=== PATIENT | male | born 1965 ===

== ENCOUNTER 2021-07-08 06:54 | Emergency (ER) | payer BC ==
[2021-07-08 08:52] LABS: SARS-COV-2 RT PCR POSITIVE (NEGATIVE)
--- NOTE | 2021-07-08 09:00 | RAD REPORT ---
EXAM DESCRIPTION: RAD - Chest Pa And Lat (2 Views) - 07/08/2021 8:46 am CLINICAL HISTORY: SOB COMPARISON: No comparisons FINDINGS: Lines: None. Lungs: No evidence of edema or pneumonia. Pleural: No significant pleural effusions or pneumothorax. Cardiac: The heart size is within normal limits. Bones: No acute fractures. Other: IMPRESSION: No acute cardiopulmonary disease.
--- NOTE | 2021-07-08 09:12 | EDPHYS ---
Physician Documentation [facility] Name: Sim Sanchez Age: 56 yrs Sex: Male : 1965 Arrival Date: 07/08/2021 Time: 06:56 Bed 5 Private MD: ED Physician Nacho Morrissey HPI: 07/08 07:50 This 56 yrs old Male presents to ER via Ambulatory with complaints of Shortness Of pm1 Breath. 07:50 The patient has shortness of breath that woke him/her from sleep. Onset: The pm1 symptoms/episode began/occurred this morning. The patient's shortness of breath is alleviated by clearing phlegm from his throat. Associated signs and symptoms: Pertinent positives: productive cough, Pertinent negatives: chest pain, fever, hemoptysis, nausea, vomiting. Severity of symptoms: in the emergency department the symptoms have resolved. The patient has experienced similar episodes in the past, a few times, patient is concerned about his sore throat. The patient has not recently seen a physician, vaccination for covid last week and he is concerned that current symptoms related to immunization. Historical: - Allergies: 07:11 No Known Allergies; bb - Immunization history:: Moderna x 3. - Social history:: Smoking status: Patient reports the use of cigarette tobacco products, denies chronic smoking, but will smoke occasionally. ROS: 07:50 Constitutional: Negative for fever, chills, and weight loss. pm1 07:50 Abdomen/GI: Negative for abdominal pain, nausea, vomiting, diarrhea, and constipation, Back: Negative for injury and pain, MS/Extremity: Negative for injury and deformity, Skin: Negative for injury, rash, and discoloration, Neuro: Negative for headache, weakness, numbness, tingling, and seizure. 07:50 ENT: Positive for sore throat, Negative for ear pain, sinus congestion, sinus pain. 07:50 Cardiovascular: Negative for chest pain. 07:50 Respiratory: Positive for cough, shortness of breath, Negative for wheezing. 07:50 All other systems are negative. Exam: 07:50 Constitutional: This is a well developed, well nourished patient who is awake, alert, pm1 and in no acute distress. Head/Face: Normocephalic, atraumatic. 07:50 Back: No spinal tenderness. No costovertebral tenderness. Full range of motion. Skin: Warm, dry with normal turgor. Normal color with no rashes, no lesions, and no evidence of cellulitis. MS/ Extremity: Pulses equal, no cyanosis. Neurovascular intact. Full, normal range of motion. 07:50 ENT: External ear(s): no acute changes, Ear canal(s): no acute changes, TM's: no acute changes, Posterior pharynx: Tonsils: bilaterally enlarged, with erythema, no exudate, no ulcerations, erythema, that is moderate, peritonsillar mass, is not appreciated. 07:50 Cardiovascular: Exam negative for acute changes, Rate: normal, Rhythm: regular, Pulses: no pulse deficits are appreciated, Heart sounds: normal. 07:50 Respiratory: Exam negative for acute changes, respiratory distress, shortness of breath, Breath sounds: are clear throughout. 07:50 Neuro: Exam negative for acute changes, Orientation: is normal, Mentation: is normal, Motor: is normal, moves all fours, Gait: is steady, at a normal pace, without difficulty. Vital Signs: 07:08 BP 175 / 90; Pulse 72; Resp 16 S; Temp 96.4(O); Pulse Ox 99% on R/A; Weight 86.18 kg bb (R); Height 5 ft. 8 in. (172.72 cm) (R); Pain 8/10; 07:45 BP 161 / 100; Pulse 70; Resp 14 S; Pulse Ox 100% on R/A; jg9 08:45 BP 169 / 88; Pulse 74; Resp 14; Pulse Ox 100% on R/A; jg9 07:08 Body Mass Index 28.89 (86.18 kg, 172.72 cm) bb MDM: 07:40 Patient medically screened. [facility] 07:55 Data reviewed: vital signs. Data interpreted: Pulse oximetry: on room air is 99 %. pm1 Interpretation: normal. 09:10 Counseling: I had a detailed discussion with the patient and/or guardian regarding: the pm1 historical points, exam findings, and any diagnostic results supporting the discharge/admit diagnosis, lab results, radiology results, the need for outpatient follow up, to return to the emergency department if symptoms worsen or persist or if there are any questions or concerns that arise at home. 09:13 ED course: LINE TECHNICIAN aware reviewed. pm1 07/08 07:50 Order name: COVID-19/FLU A+B (Document "Date of Onset" if Symptomatic) pm1 07/08 07:50 Order name: Strep pm1 07/08 07:50 Order name: Chest Pa And Lat (2 Views) XRAY; Complete Time: 09:10 pm1 07/08 07:50 Order name: COVID-19/FLU A+B; Complete Time: 09:10 EDMS 07/08 07:50 Order name: Group A Streptococcus Rapid Sc; Complete Time: 08:37 EDMS 07/08 08:41 Order name: Throat Culture EDMS Administered Medications: No medications were administered Disposition Summary: 07/08/21 09:11 Discharge Ordered Location: Home pm1 Problem: new pm1 Symptoms: have improved pm1 Condition: Stable pm1 Diagnosis - Coronavirus infection, unspecified pm1 Followup: pm1 - With: Emergency Department - When: As needed - Reason: Worsening of condition Followup: pm1 - With: Private Physician - When: 2 - 3 days - Reason: Recheck today's complaints, Continuance of care, Re-evaluation by your physician Discharge Instructions: - Discharge Summary Sheet pm1 - Antibiotic Resistance pm1 - COVID-19 pm1 - COVID-19 Frequently Asked Questions pm1 - 10 Things You Can Do to Manage Your COVID-19 Symptoms at Home - [facility] pm1 - COVID-19: Quarantine vs. Isolation - [facility] pm1 Forms: - Medication Reconciliation Form pm1 - Thank You Letter pm1 - Antibiotic Education pm1 - Prescription Opioid Use pm1 Prescriptions: - Guaifenesin AC 10-100 mg/5 mL Oral Liquid - take 10 milliliters by ORAL route every 4 hours As needed; 240 milliliter; pm1 Refills: 0, Product Selection Permitted Addendum: 07/09/2021 18:39 Co-signature as Attending Physician, Nacho Morrissey MD I agree with the assessment and c cortes plan of care. Signatures: Dispatcher [employer] Nacho Cai MD MD cha Ballard, Brenda, RN RN Lion Nino, [employer] SPECIALIST [employer] SPECIALIST pm1
--- NOTE | 2021-07-08 09:12 | ER ---
Nurse's Notes [facility] Name: Sim Sanchez Age: 56 yrs Sex: Male : 1965 Arrival Date: 07/08/2021 Time: 06:56 Bed 5 Private MD: Diagnosis: Coronavirus infection, unspecified Presentation: 07/08 07:08 Chief complaint: Patient states: around 0500 he was sleeping and he woke up with phlegm bb which he had trouble clearing and difficulty breathing. Coronavirus screen: At this time, the client does not indicate any symptoms associated with coronavirus-19. Ebola Screen: No symptoms or risks identified at this time. Initial Sepsis Screen: Does the patient meet any 2 criteria? No. Patient's initial sepsis screen is negative. Does the patient have a suspected source of infection? No. Patient's initial sepsis screen is negative. Risk Assessment: Do you want to hurt yourself or someone else? Patient reports no desire to harm self or others. Onset of symptoms was July 08, 2021. 07:08 Method Of Arrival: Ambulatory bb 07:08 Acuity: MANASA 3 bb Triage Assessment: 07:11 General: Appears in no apparent distress. Behavior is calm, cooperative. Pain: bb Complains of pain in chest Pain currently is 3 out of 10 on a pain scale. Neuro: No deficits noted. Level of Consciousness is awake, alert, obeys commands. Cardiovascular: Capillary refill < 3 seconds Patient's skin is warm and dry. Respiratory: Reports shortness of breath Onset: The symptoms/episode began/occurred suddenly, the patient has mild shortness of breath. Historical: - Allergies: 07:11 No Known Allergies; bb - Immunization history:: Moderna x 3. - Social history:: Smoking status: Patient reports the use of cigarette tobacco products, denies chronic smoking, but will smoke occasionally. Screenin:43 Abuse screen: Denies threats or abuse. Nutritional screening: No deficits noted. tw2 Tuberculosis screening: No symptoms or risk factors identified. Fall Risk None identified. Assessment: 07:59 General: Appears in no apparent distress. Behavior is calm. Pain: Denies pain. jg9 Respiratory: Reports shortness of breath sob that woke him up this morning \\T\\ 5am cough that is productive, small amount of mucous patient had difficulty clearing his throat. Vital Signs: 07:08 BP 175 / 90; Pulse 72; Resp 16 S; Temp 96.4(O); Pulse Ox 99% on R/A; Weight 86.18 kg bb (R); Height 5 ft. 8 in. (172.72 cm) (R); Pain 8/10; 07:45 BP 161 / 100; Pulse 70; Resp 14 S; Pulse Ox 100% on R/A; jg9 08:45 BP 169 / 88; Pulse 74; Resp 14; Pulse Ox 100% on R/A; jg9 07:08 Body Mass Index 28.89 (86.18 kg, 172.72 cm) ED Course: 06:56 Patient arrived in ED. 07:11 Triage completed. bb 07:11 Arm band placed on Patient placed in waiting room, Patient notified of wait time. bb 07:39 Lion Bautista NP is PHCP. pm1 07:39 Nacho Morrissey MD is Attending Physician. pm1 07:39 Bed in low position. Call light in reach. tw2 07:48 Svitlana Scott, ESSENCE is Primary Nurse. jg9 07:59 Strep Sent. jg9 07:59 COVID-19/FLU A+B (Document "Date of Onset" if Symptomatic) Sent. jg9 08:46 Chest Pa And Lat (2 Views) XRAY In Process Unspecified. EDMS 08:50 Resting quietly. Awaiting lab results, Awaiting radiology results. jg9 09:30 No provider procedures requiring assistance completed. Patient did not have IV access iw during this emergency room visit. Administered Medications: No medications were administered Outcome: 09:11 Discharge ordered by . pm1 09:30 Discharged to home ambulatory. iw 09:30 Condition: good 09:30 Discharge instructions given to patient, Instructed on discharge instructions, follow up and referral plans. Demonstrated understanding of instructions, follow-up care, medications, Prescriptions given X 1. 09:30 Patient left the ED. iw Signatures: Dispatcher [employer] EDMS Pati Le RN RN bb Jayne Huang RN RN iw Lion Bautista NP [employer] pm1 Shital Gómez RN RN tw2 Rea Roldan Svitlana Scott RN RN jg9 Corrections: (The following items were deleted from the chart) 07:14 07:08 BP 191 / 98; Pulse 72bpm; Resp 16bpm; Spontaneous; Pulse Ox 99% RA; Temp 96.4F bb Oral; 86.18 kg Reported; Height 5 ft. 8 in. Reported; BMI: 28.8; Pain 8/10; bb
[2021-07-08 09:37] VITALS: TEMP 96.4
[2021-07-08 09:38] VITALS: O2SAT 100
[2021-07-08 09:39] VITALS: BP 169/88
== END 2021-07-08 09:30 | disposition home or self-care (01) ==
LOC: ER 06:54
DX: U07.1 COVID-19 (principal); F17.210 Nicotine dependence, cigarettes, uncomplicated
CPT/HCPCS: 87070; 87081; 0240U; 71046; 99283